=== PATIENT | female | born 1930 | race Caucasian/White ===

== ENCOUNTER 2017-08-27 12:17 | Inpatient (IN) | payer MEDICARE, BC ==
[2017-08-27] MEDS ORDERED: FUROSEMIDE 10 MG/ML 4 ML VIAL IV STA (12:53)
[2017-08-27] MEDS ORDERED: methylPREDNISolone SOD SUCCI 125 MG/2 ML VIAL IV STA (12:53)
[2017-08-27] MEDS ORDERED: IPRATROPIUM-ALBUTEROL 3 ML NEB INHALATION STA (12:53)
--- NOTE | 2017-08-27 13:00 | ED ---
SOB HPI - General Chief Complaint: Shortness of Breath Stated Complaint: Difficulty Breathing Time Seen by Provider: 08/27/17 12:40 Source: patient, family, RN notes reviewed Mode of arrival: ambulatory Limitations: no limitations - History of Present Illness Initial Comments: This is a 87-year-old female history of CHF in the past a leaky heart valve and COPD he is a former smoker many years ago was had shortness of breath is got progressively worse over the last week or so. She was seen in her doctor's office earlier this week and started on oxygen therapy she still persistently having shortness of breath and is getting worse. No fevers chills nausea vomiting no chest pain reported. Severe exertional dyspnea is noted. MD Complaint: shortness of breath - Related Data Home Medications Medication Instructions Recorded Confirmed Furosemide [Lasix] 40 mg PO DAILY 06/10/16 08/27/17 Metoprolol Succinate (ER) [Toprol 25 mg PO DAILY 06/10/16 08/27/17 Xl] Travoprost (Benzalkonium) 1 drop RIGHT EYE HS 06/10/16 08/27/17 [Travoprost 0.004% Eye Drop] Acetaminophen-Codeine 300-30mg 1 tab PO Q8H PRN 08/27/17 08/27/17 [Tylenol #3] Apixaban [Eliquis] 2.5 mg PO BID 08/27/17 08/27/17 Lansoprazole [Prevacid] 30 mg PO PC-SUPPER 08/27/17 08/27/17 Losartan Potassium [Losartan 50 mg PO DAILY 08/27/17 08/27/17 Potassium] Metolazone [Zaroxolyn] 5 mg PO MO 08/27/17 08/27/17 Allergies Allergy/AdvReac Type Severity Reaction Status Date / Time No Known Allergies Allergy Verified 08/27/17 13:21 Review of Systems ROS Statement: Those systems with pertinent positive or pertinent negative responses have been documented in the HPI. ROS Other: All systems not noted in ROS Statement are negative. Past Medical History Past Medical History: Coronary Artery Disease (CAD), Hyperlipidemia, Hypertension, Rheumatoid Arthritis (RA) Additional Past Medical History / Comment(s): Patient states she was on treatment for rheumatoid arthritis for 45 years and did not have any improvement. Currently not on any aggressive medications. History of Any Multi-Drug Resistant Organisms: None Reported Past Surgical History: Coronary Bypass/CABG, Joint Replacement Additional Past Surgical History / Comment(s): left knee, thyroid removed? per pt Past Anesthesia/Blood Transfusion Reactions: No Reported Reaction Past Psychological History: No Psychological Hx Reported Smoking Status: Former smoker Past Alcohol Use History: None Reported Past Drug Use History: None Reported - Past Family History Mother Family Medical History: Liver Disease Father Family Medical History: Cancer Additional Family Medical History / Comment(s): with lung CA General Exam - General Exam Comments Initial Comments: This is a well-developed well-nourished awake alert oriented 3 female Limitations: no limitations General appearance: alert, anxious Head exam: Present: atraumatic, normocephalic, normal inspection Eye exam: Present: normal appearance, PERRL, EOMI. Absent: scleral icterus, conjunctival injection, periorbital swelling ENT exam: Present: normal exam, mucous membranes moist Neck exam: Present: normal inspection. Absent: tenderness, meningismus, lymphadenopathy Respiratory exam: Present: rales, decreased breath sounds Cardiovascular Exam: Present: regular rate, normal rhythm, normal heart sounds. Absent: systolic murmur, diastolic murmur, rubs, gallop, clicks GI/Abdominal exam: Present: soft, normal bowel sounds. Absent: distended, tenderness, guarding, rebound, rigid Rectal exam: Present: deferred Extremities exam: Present: full ROM, normal capillary refill, other (Stasis dermatitis). Absent: tenderness, pedal edema, joint swelling, calf tenderness Back exam: Present: normal inspection Neurological exam: Present: alert, oriented X3, CN II-XII intact Psychiatric exam: Present: normal affect, normal mood Skin exam: Present: warm, dry, intact, normal color. Absent: rash Course Vital Signs 08/27/17 08/27/17 08/27/17 12:24 13:22 13:27 Temperature 98 F Pulse Rate 85 82 80 Respiratory 24 18 Rate Blood Pressure 145/59 164/67 O2 Sat by Pulse 90 L 97 Oximetry 08/27/17 14:43 Temperature Pulse Rate 74 Respiratory 16 Rate Blood Pressure 154/100 O2 Sat by Pulse 97 Oximetry - Reevaluation(s) Reevaluation #1: 08/27/17 13:05 EKG is compared with one dated 06/10/16 which does reveal similar morphology. Reevaluation #2: 08/27/17 15:08 Reevaluation patient is feeling slightly better. I did discuss the findings the patient and her family members. Medical Decision Making - Medical Decision Making I did discuss findings with patient family as well as Dr. Khan. Patient be admitted for evaluation treatment of congestive heart failure also she has evidence of a non-ST elevation myocardial infarction. She does states she's been having intermittent episodes of chest pain recently. She did not report this on my initial evaluation - Lab Data Result diagrams: 08/27/17 12:54 08/27/17 12:54 Lab Results 08/27/17 08/27/17 08/27/17 Range/Units 12:54 12:54 12:54 WBC 6.7 (3.8-10.6) k/uL RBC 3.99 (3.80-5.40) m/uL Hgb 13.0 (11.4-16.0) gm/dL Hct 40.1 (34.0-46.0) % MCV 100.4 H (80.0-100.0) fL MCH 32.7 (25.0-35.0) pg MCHC 32.6 (31.0-37.0) g/dL RDW 15.1 (11.5-15.5) % Plt Count 129 L (150-450) k/uL Neutrophils % 78 % Lymphocytes % 13 % Monocytes % 6 % Eosinophils % 1 % Basophils % 0 % Neutrophils # 5.2 (1.3-7.7) k/uL Lymphocytes # 0.9 L (1.0-4.8) k/uL Monocytes # 0.4 (0-1.0) k/uL Eosinophils # 0.1 (0-0.7) k/uL Basophils # 0.0 (0-0.2) k/uL Macrocytosis Slight PT (9.0-12.0) sec INR (<1.2) APTT (22.0-30.0) sec Sodium 139 (137-145) mmol/L Potassium 4.1 (3.5-5.1) mmol/L Chloride 102 (98-107) mmol/L Carbon Dioxide 24 (22-30) mmol/L Anion Gap 13 mmol/L BUN 43 H (7-17) mg/dL Creatinine 0.95 (0.52-1.04) mg/dL Est GFR (MDRD) Af Amer >60 (>60 ml/min/1.73 sqM) Est GFR (MDRD) Non-Af 56 (>60 ml/min/1.73 sqM) Glucose 167 H (74-99) mg/dL Calcium 9.6 (8.4-10.2) mg/dL Magnesium 1.9 (1.6-2.3) mg/dL Total Bilirubin 1.1 (0.2-1.3) mg/dL AST 41 H (14-36) U/L ALT 38 (9-52) U/L Alkaline Phosphatase 52 (38-126) U/L Total Creatine Kinase 52 (30-135) U/L CK-MB (CK-2) 2.2 (0.0-2.4) ng/mL CK-MB (CK-2) Rel Index 4.2 Troponin I 0.227 H* (0.000-0.034) ng/mL NT-Pro-B Natriuret Pep pg/mL Total Protein 6.8 (6.3-8.2) g/dL Albumin 4.1 (3.5-5.0) g/dL 08/27/17 08/27/17 Range/Units 12:54 12:54 WBC (3.8-10.6) k/uL RBC (3.80-5.40) m/uL Hgb (11.4-16.0) gm/dL Hct (34.0-46.0) % MCV (80.0-100.0) fL MCH (25.0-35.0) pg MCHC (31.0-37.0) g/dL RDW (11.5-15.5) % Plt Count (150-450) k/uL Neutrophils % % Lymphocytes % % Monocytes % % Eosinophils % % Basophils % % Neutrophils # (1.3-7.7) k/uL Lymphocytes # (1.0-4.8) k/uL Monocytes # (0-1.0) k/uL Eosinophils # (0-0.7) k/uL Basophils # (0-0.2) k/uL Macrocytosis PT 13.1 H (9.0-12.0) sec INR 1.3 H (<1.2) APTT 26.5 (22.0-30.0) sec Sodium (137-145) mmol/L Potassium (3.5-5.1) mmol/L Chloride (98-107) mmol/L Carbon Dioxide (22-30) mmol/L Anion Gap mmol/L BUN (7-17) mg/dL Creatinine (0.52-1.04) mg/dL Est GFR (MDRD) Af Amer (>60 ml/min/1.73 sqM) Est GFR (MDRD) Non-Af (>60 ml/min/1.73 sqM) Glucose (74-99) mg/dL Calcium (8.4-10.2) mg/dL Magnesium (1.6-2.3) mg/dL Total Bilirubin (0.2-1.3) mg/dL AST (14-36) U/L ALT (9-52) U/L Alkaline Phosphatase (38-126) U/L Total Creatine Kinase (30-135) U/L CK-MB (CK-2) (0.0-2.4) ng/mL CK-MB (CK-2) Rel Index Troponin I (0.000-0.034) ng/mL NT-Pro-B Natriuret Pep 47954 pg/mL Total Protein (6.3-8.2) g/dL Albumin (3.5-5.0) g/dL - EKG Data -: EKG Interpreted by [facility] EKG shows normal: sinus rhythm (EKG shows a atrial fibrillation rate of 72 QRS 104 QT since QTC of 400/[address] configuration) - Radiology Data Radiology results: report reviewed (I did review the imaging and reports are is evidence of congestive heart failure.), image reviewed Critical Care Time Critical Care Time: Yes Critical Care Time: 34 minutes of critical care time which includes initial presentation with history physical labs x-rays multiple re-evaluations the patient response to therapy. Discussion with the patient family and admitting physician. Admission orders and documentation of the above. Disposition Clinical Impression: Non-ST elevation myocardial infarction (NSTEMI), Congestive heart failure (CHF) Disposition: ADMITTED IP TO THIS [facility] Condition: Stable Referrals: Martin Carr MD [Primary Care Provider] - 1-2 days
[2017-08-27 13:06] LABS: Basophils % (A) 0 %; CHCM 32.1; Eosinophils # (A) 0.1 k/uL (0-0.7); Eosinophils % (A) 1 %; HCT 40.1 % (34.0-46.0); HDW 2.79; Luc # (Auto) 0.08; Luc % (Auto) 1; Lymphocytes # (A) 0.9 k/uL (1.0-4.8); Lymphocytes % (A) 13 %; MCH 32.7 pg (25.0-35.0); MCHC 32.6 g/dL (31.0-37.0); MCV 100.4 fL (80.0-100.0); Macrocytosis Slight; Mean Platelet Volume 8.5; Monocytes # (A) 0.4 k/uL (0-1.0); Monocytes % (A) 6 %; Neutrophils # (A) 5.2 k/uL (1.3-7.7); Neutrophils % (A) 78 %; RBC 3.99 m/uL (3.80-5.40); RDW 15.1 % (11.5-15.5); WBC 6.7 k/uL (3.8-10.6); WBC (Perox) 6.73
--- NOTE | 2017-08-27 13:21 | XR ---
EXAMINATION TYPE: XR chest 2V DATE OF EXAM: 08/27/2017 COMPARISON: 06/10/2016 HISTORY: Shortness of breath FINDINGS: Noted is pulmonary venous congestion with scattered infiltrates. There is also cardiomegaly and bilateral right greater than left effusions. IMPRESSION: Findings compatible with congestive failure. Infiltrates of other etiology are not excluded. Clinical correlation and progress studies are recommended.
[2017-08-27 13:22] LABS: INR 1.3 (<1.2); Partial Thromboplastin Time 26.5 sec (22.0-30.0); Prothrombin Time 13.1 sec (9.0-12.0)
[2017-08-27 13:23] LABS: ALT 38 U/L (9-52); AST 41 U/L (14-36); Alkaline Phosphatase 52 U/L (38-126); Anion Gap 13 mmol/L; Blood Urea Nitrogen 43 mg/dL (7-17); Calcium 9.6 mg/dL (8.4-10.2); Carbon Dioxide 24 mmol/L (22-30); Chloride 102 mmol/L (98-107); Glucose 167 mg/dL (74-99); Magnesium 1.9 mg/dL (1.6-2.3); Non-African American GFR(MDRD) 56 (>60 ml/min/1.73 sqM); Potassium 4.1 mmol/L (3.5-5.1); Sodium 139 mmol/L (137-145); Total Bilirubin 1.1 mg/dL (0.2-1.3); Total Protein 6.8 g/dL (6.3-8.2)
[2017-08-27 13:40] LABS: Creatine Kinase MB 2.2 ng/mL (0.0-2.4)
[2017-08-27 13:45] LABS: Troponin I 0.227 ng/mL (0.000-0.034)
[2017-08-27] MEDS ORDERED: NITROGLYCERIN SL TABS 0.4 MG TAB SUBLINGUAL PRN (15:12)
[2017-08-27] MEDS ORDERED: NITROGLYCERIN OINT 1 INCH/GM PACKET TOPICAL STA (15:19)
[2017-08-27] MEDS ORDERED: Acetaminophen-Codeine 300-30mg TAB PO PRN (15:20)
[2017-08-27] MEDS: IPRATROPIUM-ALBUTEROL 3 ML NEB INHALATION SCH ×2 (15:42→20:29)
[2017-08-27] MEDS: PANTOPRAZOLE 40 MG TABLET PO SCH (17:14)
[2017-08-27 19:34] LABS: Creatine Kinase MB 2.1 ng/mL (0.0-2.4)
[2017-08-27 19:44] LABS: Troponin I 0.228 ng/mL (0.000-0.034)
--- NOTE | 2017-08-27 19:45 | P.HPIM ---
History of Present Illness H&P Date: 08/27/17 Chief Complaint: Shortness of breath fatigue and chest pain Patient stated that she began getting extremely fatigued and short of breath and short of breath approximately 3 days ago, she has a known history of mitral valve disease all his aortic valve disease has a history of COPD and has been a smoker in the past for this patient was in the office and started on O2 is been persistently having shortness of breath and getting worse Review of Systems Constitutional: Reports as per HPI, Reports lethargy Cardiovascular: Reports chest pain, Reports decreased exercise tolerance, Reports dyspnea on exertion, Reports high blood pressure, Reports paroxysmal nocturnal dyspnea, Reports shortness of breath Respiratory: Reports home oxygen Gastrointestinal: Reports as per HPI Genitourinary: Reports as per HPI Menstruation: Reports as per HPI, Reports postmenopausal Musculoskeletal: Reports as per HPI Integumentary: Reports as per HPI Neurological: Reports as per HPI Past Medical History Past Medical History: Atrial Fibrillation, Coronary Artery Disease (CAD), Heart Failure, COPD, GERD/Reflux, Hyperlipidemia, Hypertension, Pneumonia, Rheumatoid Arthritis (RA) Additional Past Medical History / Comment(s): Patient states she was on treatment for rheumatoid arthritis for 45 years and did not have any improvement. Currently not on any aggressive medications. History of Any Multi-Drug Resistant Organisms: None Reported Past Surgical History: Coronary Bypass/CABG, Joint Replacement Additional Past Surgical History / Comment(s): left knee, thyroid removed YEARS AGO AGE 24 Past Anesthesia/Blood Transfusion Reactions: No Reported Reaction Smoking Status: Former smoker - Past Family History Mother Family Medical History: Liver Disease Father Family Medical History: Cancer Additional Family Medical History / Comment(s): with lung CA Medications and Allergies Home Medications Medication Instructions Recorded Confirmed Type Furosemide [Lasix] 40 mg PO DAILY 06/10/16 08/27/17 History Metoprolol Succinate (ER) [Toprol 25 mg PO DAILY 06/10/16 08/27/17 History Xl] Travoprost (Benzalkonium) 1 drop RIGHT EYE HS 06/10/16 08/27/17 History [Travoprost 0.004% Eye Drop] Acetaminophen-Codeine 300-30mg 1 tab PO Q8H PRN 08/27/17 08/27/17 History [Tylenol #3] Apixaban [Eliquis] 2.5 mg PO BID 08/27/17 08/27/17 History Lansoprazole [Prevacid] 30 mg PO PC-SUPPER 08/27/17 08/27/17 History Losartan Potassium [Losartan 50 mg PO DAILY 08/27/17 08/27/17 History Potassium] Metolazone [Zaroxolyn] 5 mg PO MO 08/27/17 08/27/17 History Allergies Allergy/AdvReac Type Severity Reaction Status Date / Time No Known Allergies Allergy Verified 08/27/17 13:21 Physical Exam Osteopathic Statement: *. No significant issues noted on an osteopathic structural exam other than those noted in the History and Physical/Consult. Vitals: Vital Signs Temp Pulse Pulse Resp BP BP Pulse Ox 08/27/17 16:00 97.9 F 8 L 20 153/52 96 08/27/17 15:38 97.6 F 88 18 169/75 98 08/27/17 15:00 77 20 154/60 96 08/27/17 14:43 74 16 154/100 97 08/27/17 13:27 80 18 164/67 97 08/27/17 13:22 82 08/27/17 12:24 98 F 85 24 145/59 90 L Intake and Output 08/27/17 08/27/17 08/27/17 06:59 14:59 22:59 Intake Total 240 Balance 240 Intake: Oral 240 Other: Voiding Method Toilet # Voids 1 Weight 75.296 kg Patient Weight 08/28/17 06:59 Weight 75.296 kg General: [Patient awake, alert and oriented times 3. Patient in no acute distress.] HEENT: [PERRL. EOMI. No pharyngeal erythema or exudate.] Neck: [No adenopathy.] Cardiac: [Heart regular in rate and rhythm. No S3. No S4. No clicks, rubs. Grade 3-4 holosystolic murmur.] Lungs: Diminished breath sounds bilaterally with bilateral rhonchi Abdomen: [No mass. No organomegaly. Bowel sounds presnt and normoactive in all 4 quadrants.] Extremes: [No edema no cyanosis no claudication normal pulses] : [] Musculoskeletal: [No joint erythema, edema or tenderness.] Skin: [No rash.] Neurologic: [No lateralizing deficits. CN II - XII grossly intact.] Lymphatic: [No adenopathy.] Results CBC & Chem 7: 08/27/17 12:54 08/27/17 12:54 Labs: Abnormal Lab Results - Last 24 Hours (Table) 08/27/17 08/27/17 08/27/17 Range/Units 12:54 12:54 12:54 MCV 100.4 H (80.0-100.0) fL Plt Count 129 L (150-450) k/uL Lymphocytes # 0.9 L (1.0-4.8) k/uL PT (9.0-12.0) sec INR (<1.2) BUN 43 H (7-17) mg/dL Glucose 167 H (74-99) mg/dL AST 41 H (14-36) U/L Troponin I 0.227 H* (0.000-0.034) ng/mL 08/27/17 Range/Units 12:54 MCV (80.0-100.0) fL Plt Count (150-450) k/uL Lymphocytes # (1.0-4.8) k/uL PT 13.1 H (9.0-12.0) sec INR 1.3 H (<1.2) BUN (7-17) mg/dL Glucose (74-99) mg/dL AST (14-36) U/L Troponin I (0.000-0.034) ng/mL Thrombosis Risk Factor Assmnt - Choose All That Apply Any of the Below Risk Factors Present?: Yes Each Factor Represents 1 point: Abnormal pulmonary function (COPD) Other Risk Factors: Yes Each Risk Factor Represents 3 Points: Age 75 years or older Other congenital or acquired thrombophilia - If yes, enter type in comment: No Thrombosis Risk Factor Assessment Total Risk Factor Score: 4 Thrombosis Risk Factor Assessment Level: Moderate Risk Assessment and Plan (1) Congestive heart failure (CHF) Narrative/Plan: Obtain cardiology consult, will also get echocardiogram Status: Acute (2) Non-ST elevation myocardial infarction (NSTEMI) Narrative/Plan: We'll resume all hypertension hypertensive meds patient was also started on Lasix We'll obtain echocardiogram Waiting on cardiology consult and continue diuretics at this time Status: Acute Time with Patient: Greater than 30
[2017-08-27] MEDS: FUROSEMIDE 10 MG/ML 4 ML VIAL IV SCH (22:01)
[2017-08-27] MEDS: APIXABAN 2.5 MG TABLET PO SCH (22:01)
[2017-08-27] MEDS: LATANOPROST 0.005% OPHTH DROPS 2.5 ML BTL RIGHT EYE SCH (22:06)
[2017-08-28 00:59] LABS: Cholesterol 130 mg/dL (<200); HDL Cholesterol 40 mg/dL (40-60)
[2017-08-28 01:25] LABS: Creatine Kinase MB 2.3 ng/mL (0.0-2.4)
[2017-08-28] MEDS: NITROGLYCERIN OINT 1 INCH/GM PACKET TOPICAL SCH ×3 (01:38→11:14)
[2017-08-28 01:39] LABS: Troponin I 0.181 ng/mL (0.000-0.034)
[2017-08-28] MEDS: IPRATROPIUM-ALBUTEROL 3 ML NEB INHALATION SCH ×4 (07:32→19:30)
[2017-08-28] MEDS: APIXABAN 2.5 MG TABLET PO SCH ×2 (08:42→19:43)
[2017-08-28] MEDS: LOSARTAN 50 MG TAB PO SCH (08:42)
[2017-08-28] MEDS: METOPROLOL SUCCINATE (ER) 25 MG TAB.ER.24H PO SCH (08:42)
[2017-08-28] MEDS: FUROSEMIDE 10 MG/ML 4 ML VIAL IV SCH ×2 (08:43→19:43)
[2017-08-28] MEDS ORDERED: ASPIRIN 325 MG TAB PO SCH (09:00)
[2017-08-28] MEDS ORDERED: FUROSEMIDE 20 MG TAB PO SCH (09:00)
--- NOTE | 2017-08-28 10:09 | P.CRDCN ---
History of Present Illness Consult date: 08/28/17 Requesting physician: Alejo Khan Jr Reason for Consult (text): Non-STEMI Chief complaint: shortness of breath, cough History of present illness: This is a pleasant 87-year-old female who follows with Dr. Trammell in the office. Has known history of hypertension, hyperlipidemia, atrial fibrillation , aortic valve replacement in 2011. Most recent available echo shows mild to moderate TR, mild MR and moderate prosthetic aortic regurg. She presented to the emergency department with complaint of progressively worsening shortness of breath and productive cough. She says she did have an episode of chest discomfort about a week ago while she was clipping her Lillies. Chest x-ray on admission showed pulmonary venous congestion with scattered infiltrates and bilateral right greater than left effusions, findings compatible with CHF however infiltrates of other etiology are not excluded. EKG showed atrial fibrillation with controlled ventricular response with ST-T wave abnormalities similar to previous. She is found to have elevation in troponins of 0.227, 0.228 and 0.181. Her BNP is elevated at 14,700. BUNs 43 creatinine 0.95. She is currently on Lasix 40 mg IV push every 12 hours. Upon examination, the patient continues to complain of significant shortness of breath. She appears short of breath with talking. She also complains of mild lower extremity edema. She denies weight gain. She has no dizziness, lightheadedness, syncope or further complaints of chest discomfort. Past Medical History Past Medical History: Atrial Fibrillation, Coronary Artery Disease (CAD), Heart Failure, COPD, GERD/Reflux, Hyperlipidemia, Hypertension, Pneumonia, Rheumatoid Arthritis (RA) Additional Past Medical History / Comment(s): Patient states she was on treatment for rheumatoid arthritis for 45 years and did not have any improvement. Currently not on any aggressive medications. History of Any Multi-Drug Resistant Organisms: None Reported Past Surgical History: Coronary Bypass/CABG, Joint Replacement Additional Past Surgical History / Comment(s): left knee, thyroid removed YEARS AGO AGE 24 Past Anesthesia/Blood Transfusion Reactions: No Reported Reaction Smoking Status: Former smoker - Past Family History Mother Family Medical History: Liver Disease Father Family Medical History: Cancer Additional Family Medical History / Comment(s): with lung CA Medications and Allergies Home Medications Medication Instructions Recorded Confirmed Type Furosemide [Lasix] 40 mg PO DAILY 06/10/16 08/27/17 History Metoprolol Succinate (ER) [Toprol 25 mg PO DAILY 06/10/16 08/27/17 History Xl] Travoprost (Benzalkonium) 1 drop RIGHT EYE HS 06/10/16 08/27/17 History [Travoprost 0.004% Eye Drop] Acetaminophen-Codeine 300-30mg 1 tab PO Q8H PRN 08/27/17 08/27/17 History [Tylenol #3] Apixaban [Eliquis] 2.5 mg PO BID 08/27/17 08/27/17 History Lansoprazole [Prevacid] 30 mg PO PC-SUPPER 08/27/17 08/27/17 History Losartan Potassium [Losartan 50 mg PO DAILY 08/27/17 08/27/17 History Potassium] Metolazone [Zaroxolyn] 5 mg PO MO 08/27/17 08/27/17 History Allergies Allergy/AdvReac Type Severity Reaction Status Date / Time No Known Allergies Allergy Verified 08/27/17 13:21 Physical Exam Vitals: Vital Signs Temp Pulse Pulse Pulse Resp BP BP 08/28/17 08:00 97.1 F L 53 L 16 08/28/17 07:46 82 08/28/17 07:34 80 08/28/17 04:00 97.1 F L 83 18 08/28/17 00:00 78 18 132/58 08/27/17 20:43 79 08/27/17 20:32 79 08/27/17 20:00 97 F L 80 18 08/27/17 16:00 97.9 F 8 L 20 153/52 08/27/17 15:38 97.6 F 88 18 169/75 08/27/17 15:00 77 20 154/60 08/27/17 14:43 74 16 154/100 08/27/17 13:27 80 18 164/67 08/27/17 13:22 82 08/27/17 12:24 98 F 85 24 145/59 BP Pulse Ox 08/28/17 08:00 146/60 98 08/28/17 07:46 08/28/17 07:34 95 08/28/17 04:00 138/77 95 08/28/17 00:00 96 08/27/17 20:43 08/27/17 20:32 08/27/17 20:00 131/56 96 08/27/17 16:00 96 08/27/17 15:38 98 08/27/17 15:00 96 08/27/17 14:43 97 08/27/17 13:27 97 08/27/17 13:22 08/27/17 12:24 90 L Intake and Output 08/27/17 08/28/17 08/28/17 22:59 06:59 14:59 Intake Total 240 240 Output Total 500 Balance 240 -500 240 Intake: Oral 240 240 Output: Urine 500 Other: Voiding Method Toilet Toilet # Voids 1 1 Weight 75.8 kg PHYSICAL EXAMINATION: HEENT: Head is atraumatic, normocephalic. Pupils equal, round. Neck is supple. There is no elevated jugular venous pressure. HEART EXAMINATION: Heart sounds irregularly irregular, S1 and S2 with a systolic and diastolic murmur at the base. CHEST EXAMINATION: Lungs reveal scattered wheezes with crackles to bilateral bases. No chest wall tenderness is noted on palpation or with deep breathing. ABDOMEN: Soft, nontender. Bowel sounds are heard. No organomegaly noted. EXTREMITIES: 1+ peripheral pulses with evidence of +1 right lower leg edema and no calf tenderness noted. NEUROLOGIC patient is awake, alert and oriented x3. . Results 08/27/17 12:54 08/27/17 12:54 Cardiac Enzymes 08/27/17 08/27/17 08/27/17 Range/Units 12:54 12:54 18:55 AST 41 H (14-36) U/L CK-MB (CK-2) 2.2 2.1 (0.0-2.4) ng/mL Troponin I 0.227 H* 0.228 H* (0.000-0.034) ng/mL 08/28/17 Range/Units 00:32 AST (14-36) U/L CK-MB (CK-2) 2.3 (0.0-2.4) ng/mL Troponin I 0.181 H* (0.000-0.034) ng/mL Coagulation 08/27/17 Range/Units 12:54 PT 13.1 H (9.0-12.0) sec APTT 26.5 (22.0-30.0) sec Lipids 08/28/17 Range/Units 00:32 Triglycerides 80 (<150) mg/dL Cholesterol 130 (<200) mg/dL HDL Cholesterol 40 (40-60) mg/dL CBC 08/27/17 Range/Units 12:54 WBC 6.7 (3.8-10.6) k/uL RBC 3.99 (3.80-5.40) m/uL Hgb 13.0 (11.4-16.0) gm/dL Hct 40.1 (34.0-46.0) % Plt Count 129 L (150-450) k/uL Comprehensive Metabolic Panel 08/27/17 Range/Units 12:54 Sodium 139 (137-145) mmol/L Potassium 4.1 (3.5-5.1) mmol/L Chloride 102 (98-107) mmol/L Carbon Dioxide 24 (22-30) mmol/L BUN 43 H (7-17) mg/dL Creatinine 0.95 (0.52-1.04) mg/dL Glucose 167 H (74-99) mg/dL Calcium 9.6 (8.4-10.2) mg/dL AST 41 H (14-36) U/L ALT 38 (9-52) U/L Alkaline Phosphatase 52 (38-126) U/L Total Protein 6.8 (6.3-8.2) g/dL Albumin 4.1 (3.5-5.0) g/dL Current Medications Generic Name Dose Route Start Last Admin Trade Name Freq PRN Reason Stop Dose Admin Acetaminophen/Codeine Phosphate 1 each 08/27/17 15:20 Tylenol #3 PO Q8H PRN Pain Albuterol/Ipratropium 3 ml 08/28/17 08:00 08/28/17 07:32 Duoneb 0.5 Mg-3 Mg/3 Ml Soln INHALATION 3 ml RT-QID KATHERINE Administration Apixaban 2.5 mg 08/27/17 21:00 08/28/17 08:42 Eliquis PO 2.5 mg BID KATHERINE Administration Aspirin 325 mg 08/28/17 09:00 08/28/17 08:42 Aspirin PO 325 mg DAILY KATHERINE Administration Furosemide 40 mg 08/27/17 21:00 08/28/17 08:43 Lasix IV 40 mg Q12HR KATHERINE Administration Latanoprost 1 drops 08/27/17 21:00 08/27/17 22:06 Xalatan 0.005% RIGHT EYE 1 drops HS KATHERINE Administration Losartan Potassium 50 mg 08/28/17 09:00 08/28/17 08:42 Cozaar PO 50 mg DAILY KATHERINE Administration Metolazone 5 mg 08/30/17 09:00 Zaroxolyn PO MO KATHERINE Metoprolol Succinate 25 mg 08/28/17 09:00 08/28/17 08:42 Toprol Xl PO 25 mg DAILY KATHERINE Administration Nitroglycerin 0.5 inch 08/28/17 00:00 08/28/17 05:09 Nitro-Bid Oint TOPICAL 0.5 inch Q6HR KATHERINE Administration Nitroglycerin 0.4 mg 08/27/17 15:12 Nitrostat SUBLINGUAL Q5M PRN Chest Pain Pantoprazole Sodium 40 mg 08/27/17 18:30 08/27/17 17:14 Protonix PO 40 mg PC-SUPPER KATHERINE Administration Intake and Output 08/27/17 08/28/17 08/28/17 22:59 06:59 14:59 Intake Total 240 240 Output Total 500 Balance 240 -500 240 Intake: Oral 240 240 Output: Urine 500 Other: Voiding Method Toilet Toilet # Voids 1 1 Weight 75.8 kg 08/27/17 12:54 08/27/17 12:54 Assessment and Plan Plan: Assessment and plan #1 acute congestive heart failure, likely diastolic with last echo shows a normal EF, awaiting echo results from today. #2 hypertension #3 history of aortic valve replacement with moderate regurgitation of the repaired valve #4 hyperlipidemia From cardiology's perspective, we will stop nitropaste, start oral nitrate. Continue IV lasix. Continue to monitor renal function. Review 2-D echo with doppler. May consider adding aldactone tomorrow depending on clinical status and renal function. Further recommendations to follow. [employer] note has been reviewed, I agree with a documented findings and plan of care. Patient was seen and examined.
[2017-08-28 10:50] VITALS: BMI 28.6
--- NOTE | 2017-08-28 11:37 | P.PN ---
Subjective Progress Note Date: 08/28/17 Principal diagnosis: Congestive heart failure, diastolic in nature, hypertension, A. fib by history and valvular repair by history Pleasant 87-year-old female well-known to our practice who has a known history of hypertension hyperlipidemia A. fib aortic valve replacement 2011. Most recent echo demonstrates tricuspid regurg and mitral regurg moderate prosthetic aortic regurg. Patient again progressed presented to the emergency room with progressive worsening of shortness of breath over the last 3 days. She did have an episode of chest discomfort as well. X-ray on admission shows pulmonary venous congestion with scattered infiltrates right greater than left effusions findings compatible with congestive heart failure. And BNP of 14, 700. Today patient seems a bleeding seems improved and patient is excellent spirits and states she feels much better. Objective - Vital Signs Vital signs: Vital Signs Temp 97.1 F L 08/28/17 08:00 Pulse 78 08/28/17 11:22 Resp 16 08/28/17 08:00 BP 146/60 08/28/17 08:00 Pulse Ox 98 08/28/17 08:00 Intake & Output 08/27/17 08/28/17 08/28/17 18:59 06:59 18:59 Intake Total 240 Output Total 500 Balance 240 -500 Weight 75.296 kg 75.8 kg 75.8 kg Intake: Oral 240 Output: Urine 500 Other: Voiding Method Toilet Toilet # Voids 1 1 0 - Exam General: [Patient awake, alert and oriented times 3. Patient in no acute distress.] HEENT: [PERRL. EOMI. No pharyngeal erythema or exudate.] Neck: [No adenopathy.] Cardiac: [Heart regular in rate and rhythm. No S3. No S4. No clicks, rubs. Grade 3 holosystolic murmur Lungs: Breath sounds have improved patient has mild to moderate coarse rhonchi on auscultation Abdomen: [No mass. No organomegaly. Bowel sounds presnt and normoactive in all 4 quadrants.] Extremes: [No edema no cyanosis no claudication normal pulses] : [] Musculoskeletal: [No joint erythema, edema or tenderness.] Skin: [No rash.] Neurologic: [No lateralizing deficits. CN II - XII grossly intact.] Lymphatic: [No adenopathy.] - Labs CBC & Chem 7: 08/27/17 12:54 08/27/17 12:54 Labs: Abnormal Lab Results - Last 24 Hours (Table) 08/27/17 08/27/17 08/27/17 Range/Units 12:54 12:54 12:54 MCV 100.4 H (80.0-100.0) fL Plt Count 129 L (150-450) k/uL Lymphocytes # 0.9 L (1.0-4.8) k/uL PT (9.0-12.0) sec INR (<1.2) BUN 43 H (7-17) mg/dL Glucose 167 H (74-99) mg/dL AST 41 H (14-36) U/L Troponin I 0.227 H* (0.000-0.034) ng/mL 08/27/17 08/27/17 08/28/17 Range/Units 12:54 18:55 00:32 MCV (80.0-100.0) fL Plt Count (150-450) k/uL Lymphocytes # (1.0-4.8) k/uL PT 13.1 H (9.0-12.0) sec INR 1.3 H (<1.2) BUN (7-17) mg/dL Glucose (74-99) mg/dL AST (14-36) U/L Troponin I 0.228 H* 0.181 H* (0.000-0.034) ng/mL Assessment and Plan (1) Congestive heart failure (CHF) Status: Acute (2) Non-ST elevation myocardial infarction (NSTEMI) Status: Acute Plan: Echocardiogram results pending Dr. Trammell was in with patient as I left the room patient otherwise improved at this time Time with Patient: Less than 30
--- NOTE | 2017-08-28 11:38 | P.PN ---
Progress Note - Text This is an addendum to the dictated cardiology consultation. The patient has a known history of aortic valve replacement in 2012, mild coronary artery disease , mild prosthetic aortic regurgitation who presents with symptoms of progressive dyspnea on exertion, cough and peripheral edema. She had a brief episode of chest discomfort but has resolved since. She denies any dizziness or palpitations. She has symptoms of PND. She has a history of chronic atrial fibrillation and has been anticoagulated. She's feeling better today after receiving intravenous diuretics. Unlike examination she has few crackles at the bases and she has a diastolic aortic murmur and a systolic murmur. Mild edema is noted on the right side. Her lab data are consistent with CHF, the mild troponin elevation most likely represent a type II event consistent with her CHF. In the past her systolic function was normal. I will continue with intravenous diuretics for another 24-48 hours, I will review the results for echocardiogram. If she has significant severe aortic regurgitation than one of the option is to consider TAVR if she is in agreement. Depending on her renal function spironolactone can be added to her regimen. Thank you for this consult we will follow with you.
[2017-08-28] MEDS: ISOSORBIDE MONONITRATE ER 30 MG TAB.ER.24H PO SCH (12:27)
--- NOTE | 2017-08-28 14:42 | ECHOF ---
Referral Reason:Non-STEMI NM valvular disease MEASUREMENTS -------- HEIGHT: 162.6 cm WEIGHT: 75.8 kg BP: 138/77 RVIDd: 2.2 cm (< 3.3) IVSd: 1.2 cm (0.6 - 1.1) LVIDd: 5.3 cm (3.9 - 5.3) LVPWd: 0.9 cm (0.6 - 1.1) IVSs: 1.4 cm LVIDs: 3.3 cm LVPWs: 1.4 cm LA Diam: 4.9 cm (2.7 - 3.8) LAESV Index (A-L): 72.07 ml/m Ao Diam: 2.8 cm (2.0 - 3.7) AV Cusp: 1.2 cm (1.5 - 2.6) LA Diam: 4.6 cm (2.7 - 3.8) MV E Michael: 1.66 m/s MV DecT: 214 ms MV A Michael: 0.87 m/s MV E/A Ratio: 1.91 AV maxP.98 mmHg AV meanP.75 mmHg AR PHT: 143 ms RAP: 5.00 mmHg RVSP: 64.89 mmHg FINDINGS -------- Atrial fibrillation. This was a technically adequate study. The left ventricular size is normal. Left ventricular wall thickness is normal. Overall left ventricular systolic function is low-normal with, an EF between 50 - 55 %. The right ventricle is normal in size. LA is severely dilated >40 ml/m2 The right atrial size is normal. Peak/mean gradient across the Aortic Valve is 45.98mmHg / 19.75mmHg. Abnormally functioning porcine bioprosthetic aortic valve. There is severe regurgitation of the bioprosthetic aortic valve. Calcfied with possible leaflet prolapse. Moderate mitral annular calcification present. Moderate mitral regurgitation is present. The peak and mean MV gradients are 16.71mmHg 4.67mmHg as measured by doppler. MV is Stenotic with decrease opening Moderate tricuspid regurgitation present. There is moderate pulmonary hypertension. The right ventricular systolic pressure, as measured by Doppler, is 64.89mmHg. Trace/mild (physiologic) pulmonic regurgitation. The aortic root size is normal. There is no pericardial effusion. CONCLUSIONS -------- 1. Atrial fibrillation. 2. Moderate mitral regurgitation is present. 3. The peak and mean MV gradients are 16.71mmHg 4.67mmHg as measured by doppler. 4. MV is Stenotic with decrease opening 5. Moderate tricuspid regurgitation present. 6. There is moderate pulmonary hypertension. 7. The right ventricular systolic pressure, as measured by Doppler, is 64.89mmHg. 8. Trace/mild (physiologic) pulmonic regurgitation. 9. The aortic root size is normal. 10. There is no pericardial effusion. 11. Left ventricular wall thickness is normal. 12. Overall left ventricular systolic function is low-normal with, an EF between 50 - 55 %. 13. LA is severely dilated >40 ml/m2 14. Peak/mean gradient across the Aortic Valve is 45.98mmHg / 19.75mmHg. 15. Abnormally functioning porcine bioprosthetic aortic valve. 16. There is severe regurgitation of the bioprosthetic aortic valve. 17. Calcfied with possible leaflet prolapse. 18. Moderate mitral annular calcification present. SHOE RECONDITIONER: Liat Ying RDCS
[2017-08-28] MEDS: PANTOPRAZOLE 40 MG TABLET PO SCH (17:00)
[2017-08-28] MEDS: LATANOPROST 0.005% OPHTH DROPS 2.5 ML BTL RIGHT EYE SCH (19:43)
[2017-08-29 06:38] LABS: Calcium 9.5 mg/dL (8.4-10.2); Potassium 3.4 mmol/L (3.5-5.1)
[2017-08-29] MEDS: APIXABAN 2.5 MG TABLET PO SCH ×2 (07:43→21:39)
[2017-08-29] MEDS: METOPROLOL SUCCINATE (ER) 25 MG TAB.ER.24H PO SCH (07:43)
[2017-08-29] MEDS: ISOSORBIDE MONONITRATE ER 30 MG TAB.ER.24H PO SCH (07:43)
[2017-08-29] MEDS: LOSARTAN 50 MG TAB PO SCH (07:43)
[2017-08-29] MEDS: FUROSEMIDE 10 MG/ML 4 ML VIAL IV SCH (07:44)
[2017-08-29] MEDS: IPRATROPIUM-ALBUTEROL 3 ML NEB INHALATION SCH ×5 (08:44→19:10)
--- NOTE | 2017-08-29 11:25 | P.PN ---
Subjective Progress Note Date: 08/29/17 Principal diagnosis: Congestive heart failure, diastolic in nature, hypertension, A. fib by history and valvular repair by history Pleasant 87-year-old female well-known to our practice who has a known history of hypertension hyperlipidemia A. fib aortic valve replacement 2011. Most recent echo demonstrates tricuspid regurg and mitral regurg moderate prosthetic aortic regurg. Patient again progressed presented to the emergency room with progressive worsening of shortness of breath over the last 3 days. She did have an episode of chest discomfort as well. X-ray on admission shows pulmonary venous congestion with scattered infiltrates right greater than left effusions findings compatible with congestive heart failure. And BNP of 14, 700. Today patient seems improved and patient is excellent spirits and states she feels much better. Ejection fraction of 50-55% on echo however the aortic valve shows moderate to severe regurgitation Objective - Vital Signs Vital signs: Vital Signs Temp 97 F L 08/29/17 11:19 Pulse 80 08/29/17 11:19 Resp 18 08/29/17 11:19 BP 122/43 08/29/17 11:19 Pulse Ox 98 08/29/17 11:19 Intake & Output 08/28/17 08/29/17 08/29/17 18:59 06:59 18:59 Intake Total 480 236 Output Total 300 275 Balance 180 -275 236 Weight 75.8 kg 73.5 kg Intake: Oral 480 236 Output: Urine 300 275 Other: Voiding Method Toilet # Voids 0 1 # Bowel Movements 0 - Exam General: [Patient awake, alert and oriented times 3. Patient in no acute distress.] HEENT: [PERRL. EOMI. No pharyngeal erythema or exudate.] Neck: [No adenopathy.] Cardiac: [Heart regular in rate and rhythm. No S3. No S4. No clicks, rubs. Grade 3 holosystolic murmur Lungs: Breath sounds have improved patient has mild to moderate coarse rhonchi on auscultation Abdomen: [No mass. No organomegaly. Bowel sounds presnt and normoactive in all 4 quadrants.] Extremes: [No edema no cyanosis no claudication normal pulses] : [] Musculoskeletal: [No joint erythema, edema or tenderness.] Skin: [No rash.] Neurologic: [No lateralizing deficits. CN II - XII grossly intact.] Lymphatic: [No adenopathy.] - Labs CBC & Chem 7: 08/27/17 12:54 08/29/17 06:03 Labs: Abnormal Lab Results - Last 24 Hours (Table) 08/29/17 Range/Units 06:03 Potassium 3.4 L (3.5-5.1) mmol/L BUN 59 H (7-17) mg/dL Creatinine 1.20 H (0.52-1.04) mg/dL Glucose 122 H (74-99) mg/dL Microbiology - Last 24 Hours (Table) 08/27/17 12:54 Blood Culture - Preliminary Blood No Growth after 24 hours Assessment and Plan (1) Congestive heart failure (CHF) Status: Acute (2) Non-ST elevation myocardial infarction (NSTEMI) Status: Acute Plan: Echocardiogram results . EF of 50-55%, moderate to severe aortic valve regurg Continue diuresis Dr. Trammell was in with patient as I left the room patient otherwise improved at this time
--- NOTE | 2017-08-29 12:38 | P.PN ---
Subjective Progress Note Date: 08/29/17 The patient has a history of aortic valve replacement who presents with symptoms progressive dyspnea, cough productive of yellowish sputum. She continues to have the cough needs to be dyspneic although slightly better. She has no peripheral edema, no dizziness or syncope. She has no evidence of tachycardia or bradycardia. She had an echocardiogram done yesterday that showed an ejection fraction of 50-55% with severe bioprosthetic aortic regurgitation and moderate mitral regurgitation with moderate pulmonary hypertension. Objective - Vital Signs Vital signs: Vital Signs Temp 97 F L 08/29/17 11:19 Pulse 80 08/29/17 11:19 Resp 18 08/29/17 11:19 BP 122/43 08/29/17 11:19 Pulse Ox 98 08/29/17 11:19 Intake & Output 08/28/17 08/29/17 08/29/17 18:59 06:59 18:59 Intake Total 480 236 Output Total 300 275 Balance 180 -275 236 Weight 75.8 kg 73.5 kg Intake: Oral 480 236 Output: Urine 300 275 Other: Voiding Method Toilet # Voids 0 1 # Bowel Movements 0 - Exam Head: Normocephalic. Eyes: Sclerae nonicteric . Neck: Good carotid upstroke, no bruit, . Lungs: Few crackles at the bases. Heart: Irregular rate and rhythm, S1-S2, no S3, systolic ejection murmur and a diastolic murmur at the base. Abdomen: Soft nontender, positive bowel sounds no organomegaly. Extremities: No edema, intact distal pulses. - Labs CBC & Chem 7: 08/27/17 12:54 08/29/17 06:03 Labs: Abnormal Lab Results - Last 24 Hours (Table) 08/29/17 Range/Units 06:03 Potassium 3.4 L (3.5-5.1) mmol/L BUN 59 H (7-17) mg/dL Creatinine 1.20 H (0.52-1.04) mg/dL Glucose 122 H (74-99) mg/dL Microbiology - Last 24 Hours (Table) 08/27/17 12:54 Blood Culture - Preliminary Blood No Growth after 24 hours Assessment and Plan Plan: Impression: 1 progressive dyspnea with evidence of CHF related to her aortic regurgitation and possible bronchitis. 2. Persistent chronic atrial fibrillation 3. Status post aortic valve replacement. 4. Worsening renal functions. Plan: I will switch her to oral diuretics, continue the rest of his medical regimen. I had a long discussion with her and her family regarding the options of continuing medical treatment, the guarded prognosis versus considering valve in valve percutaneous replacement. The patient at this time is not very interested in any intervention. We will follow her renal function and depending on her progress further recommendations.
[2017-08-29] MEDS: FUROSEMIDE 40 MG TAB PO SCH (15:48)
[2017-08-29] MEDS: PANTOPRAZOLE 40 MG TABLET PO SCH (17:28)
[2017-08-29 20:34] LABS: Calcium 9.4 mg/dL (8.4-10.2)
[2017-08-29 20:35] LABS: Magnesium 1.9 mg/dL (1.6-2.3); Potassium 3.7 mmol/L (3.5-5.1)
[2017-08-29] MEDS: LATANOPROST 0.005% OPHTH DROPS 2.5 ML BTL RIGHT EYE SCH (21:39)
[2017-08-30] MEDS ORDERED: MELATONIN 3 MG TABLET PO STA (01:32)
[2017-08-30 06:47] LABS: Anion Gap 9 mmol/L; Blood Urea Nitrogen 46 mg/dL (7-17); Calcium 9.3 mg/dL (8.4-10.2); Carbon Dioxide 31 mmol/L (22-30); Chloride 102 mmol/L (98-107); Glucose 136 mg/dL (74-99); Non-African American GFR(MDRD) 54 (>60 ml/min/1.73 sqM); Potassium 3.3 mmol/L (3.5-5.1); Sodium 142 mmol/L (137-145)
[2017-08-30] MEDS: METOPROLOL SUCCINATE (ER) 25 MG TAB.ER.24H PO SCH (07:42)
[2017-08-30] MEDS: APIXABAN 2.5 MG TABLET PO SCH ×2 (07:42→21:09)
[2017-08-30] MEDS: FUROSEMIDE 40 MG TAB PO SCH ×2 (07:42→18:03)
[2017-08-30] MEDS: LOSARTAN 50 MG TAB PO SCH (07:43)
[2017-08-30] MEDS: ISOSORBIDE MONONITRATE ER 30 MG TAB.ER.24H PO SCH (07:43)
[2017-08-30] MEDS: IPRATROPIUM-ALBUTEROL 3 ML NEB INHALATION SCH ×4 (07:44→19:56)
[2017-08-30] MEDS ORDERED: METOLAZONE 5 MG TAB PO SCH (09:00)
--- NOTE | 2017-08-30 10:35 | CDI ---
In responding to this query, please exercise your independent professional judgment. The [facility] Coding Staff and Clinical Documentation Specialists appreciate your assistance in clarifying documentation, maintaining compliance with coding guidelines, accurately documenting patients condition and capturing severity of illness. The fact that a question is asked does not imply that any particular answer is desired or expected. Communication forms are a method of clarifying documentation and are not made part of the Legal Health Record. Thank you in advance for your clarification. Last Revision, September 2015 Sarah Rubio [address] [place] [id number] Documentation Clarification Form Date: 08/30/2017 10:14:00 AM From: Esthela Babcock CCS, CCDS Admit Date: 08/27/2017 3:12:00 PM Patient Name: Leslye Parra Visit Number: [id number] Discharge Date: Dr. Alejo Khan: Conflicting documentation has been found in the medical record. *Per the History & Physical and attending documentation, the patient is diagnosed with a NSTEMI, presented with elevated troponins, diagnosed with acute diastolic CHF. *Per the Cardiology consult & progress notes, the patient's elevated troponins are likely d/t CHF, likely diastolic & represent a type II event. History/Risk Factors: Chronic, Persistent Atrial Fibrillation, Hypertensive Heart Disease, Pulmonary Hypertension, previous CABG & AVR. Former smoker. Clinical Indicators: Troponins: 0.227, 0.228, 0.181 ECHO: EF 50-55% systolic function low normal, Mod mitral & tricuspid regurgitation. Treatment: IV Lasix, INH, IV Solumedrol, Nitro sl & nitropaste, O2. In your opinion what is the most clinically appropriate diagnosis for this patient? Type I MD: due to a primary coronary event, such as plaque rupture or dissection. Type II MD: Due to a supply & demand mismatch such as coronary spasm, coronary embolism, arrhythmia, anemia or hypotension. Other type of MD, please explain Other explanation of clinical findings Unable to determine (no explanation for clinical findings) Please document in your progress notes and discharge summary in order to capture severity of illness and risk of mortality. Include clinical findings that support your diagnosis. FYI: Press F11 to launch patient chart. RENZO
[2017-08-30] MEDS ORDERED: Potassium Replacement Protocol 1 EACH MISC MISCELLANE PRN (11:27)
--- NOTE | 2017-08-30 11:51 | P.PN ---
Subjective Progress Note Date: 08/30/17 87-year-old female who presented to the emergency room on 08/27/2017 with a chief complaint of shortness of breath. In the emergency room her troponins were found to be elevated and her BNP was 14,700. The patient has a history of an aortic valve replacement. She is a former smoker, has a history of COPD, and was recently started on home oxygen. A chest x-ray was completed in the emergency room which showed pulmonary venous congestion, scattered infiltrates, and bilateral right greater than left pleural effusions. An echocardiogram was completed which shows an ejection fraction of 50-55%. It also shows moderate to severe aortic valve regurgitation, moderate mitral valve regurgitation, and moderate pulmonary hypertension. The patient was admitted to the hospital under the care of Dr. Khan and consultations were placed to cardiology. 08/30/2017 Patient was seen and examined at the bedside this morning. She states she is feeling well. She denies any chest pain or pressure. She states her breathing has improved. She remains on 2 L nasal cannula with oxygen saturations greater than 92%. She is afebrile. She is tolerating a diet without nausea or vomiting. She was switched from IV Lasix to oral: 40mg PO BID and Zaroxolyn 5mg on Mondays. Objective - Vital Signs Vital signs: Vital Signs Temp 97.6 F 08/30/17 07:46 Pulse 84 08/30/17 11:16 Resp 18 08/30/17 08:00 BP 159/55 08/30/17 07:46 Pulse Ox 97 08/30/17 07:46 Intake & Output 08/29/17 08/30/17 08/30/17 18:59 06:59 18:59 Intake Total 436 Output Total 500 Balance 436 -500 Weight 76.5 kg Intake: Oral 436 Output: Urine 500 Other: Voiding Method Toilet # Voids 2 1 - Exam GENERAL: Alert and oriented. Appears in no acute distress. Pleasant. RESPIRATORY: Lungs clear bilaterally, diminished at the bases. No use of accessory muscles. Patient maintaining oxygen saturation greater than 92% on 2 L nasal cannula. CARDIOVASCULAR: Irregular, S1 and S2 noted. Systolic and diastolic murmur noted. No JVD noted. EXTREMITIES: no lower extremity edema. Palpable pedal pulses +2. ABDOMEN: No distention noted. Abdomen soft and round. Normal active bowel sounds auscultated 4 quadrants. No pain or tenderness noted upon palpation. - Labs CBC & Chem 7: 08/27/17 12:54 08/30/17 06:03 Labs: Abnormal Lab Results - Last 24 Hours (Table) 08/29/17 08/30/17 Range/Units 19:39 06:03 Potassium 3.3 L (3.5-5.1) mmol/L Carbon Dioxide 31 H (22-30) mmol/L BUN 53 H 46 H (7-17) mg/dL Creatinine 1.10 H (0.52-1.04) mg/dL Glucose 148 H 136 H (74-99) mg/dL Microbiology - Last 24 Hours (Table) 08/27/17 12:54 Blood Culture - Preliminary Blood No Growth after 48 hours Assessment and Plan Plan: ASSESSMENT: -Acute exacerbation of diastolic congestive heart failure, recent echo shows EF of 50-55% -Elevated troponins, present on admission, secondary to congestive heart failure and represent a type II SC -Dyspnea, present on admission, secondary to congestive heart failure exacerbation, improving -Chronic, persistent atrial fibrillation on long-term anticoagulation with Eliquis -History of aortic valve replacement with moderate to severe regurgitation of the repaired valve -COPD, no evidence of acute exacerbation -Essential hypertension -History of rheumatoid arthritis, patient currently not on any treatment as patient states she was not seeing any improvement -Hypokalemia, secondary to diuretics PLAN: -Cardiology on consult. Appreciate recommendations and input -Continue diuretics -Per cardiology report, the patient is not interested in pursuing intervention for her aortic valve regurgitation -Replace potassium per protocol -Monitor labs -GI prophylaxis: Protonix 40 mg PO daily -DVT prophylaxis: Eliquis -Monitor vital signs and address as appropriate The above impression and plan of care have been discussed and directed by signing physician. Freda Julien, nurse practitioner, acting as scribe for signing physician.
[2017-08-30] MEDS: POTASSIUM CHLORIDE ER 20 MEQ TAB.ER PO SCH (11:58)
--- NOTE | 2017-08-30 12:36 | PN ---
PROGRESS NOTE Mrs. Parra is an 87-year-old female status post aortic valve replacement with aortic valve regurgitation, history of hypertension and atrial fibrillation who presented with symptoms of progressive dyspnea. She is feeling better today. She continues to cough. She has dark sputum. She has no chest pain. No palpitation. No nausea. Her breathing overall feels better. She continues to be on furosemide 40 mg twice a day, Eliquis 2 .5 mg twice a day, isosorbide mononitrate 30 mg daily, losartan 50 mg daily, metolazone 5 mg once a week, metoprolol succinate 25 mg daily, and potassium supplement. PHYSICAL EXAMINATION: Blood pressure running in the 140s with the heart rate in the 70s. LUNGS: No wheezes. HEART: Irregular, irregular. S1, S2. No S3 with a systolic murmur heard at the base and a diastolic murmur. No rub. ABDOMEN: Soft, nontender. EXTREMITIES: No edema. LAB DATA: Lab data revealed BUN and creatinine 46 and 0.97. Potassium 3.3. Cholesterol 130, LDL of 74. IMPRESSION: 1. Status post aortic valve replacement with aortic regurgitation, severe. 2. Symptoms of bronchitis. 3. Congestive heart failure related to her aortic regurgitation. 4. Atrial fibrillation. RECOMMENDATION: From the cardiac standpoint, we will continue current therapy. Follow her renal function. If she remains stable, I would expect that she should be able to be discharged home in the next 24 to 48 hours and then re-evaluated as an outpatient regarding her aortic valve regurgitation and if she is in favor of proceeding with any further intervention. Those findings were discussed with her and her family. MMODL / IJN: [id number] /
[2017-08-30] MEDS: PANTOPRAZOLE 40 MG TABLET PO SCH (18:03)
[2017-08-30] MEDS: LATANOPROST 0.005% OPHTH DROPS 2.5 ML BTL RIGHT EYE SCH (21:09)
[2017-08-31 07:12] LABS: Anion Gap 8 mmol/L; Blood Urea Nitrogen 40 mg/dL (7-17); Calcium 9.6 mg/dL (8.4-10.2); Carbon Dioxide 34 mmol/L (22-30); Chloride 98 mmol/L (98-107); Glucose 127 mg/dL (74-99); Non-African American GFR(MDRD) 59 (>60 ml/min/1.73 sqM); Potassium 3.7 mmol/L (3.5-5.1); Sodium 140 mmol/L (137-145)
[2017-08-31 08:02] VITALS: BP 142/53; RESP 18; TEMP 97.3
[2017-08-31] MEDS: APIXABAN 2.5 MG TABLET PO SCH (08:13)
[2017-08-31] MEDS: ISOSORBIDE MONONITRATE ER 30 MG TAB.ER.24H PO SCH (08:13)
[2017-08-31] MEDS: METOPROLOL SUCCINATE (ER) 25 MG TAB.ER.24H PO SCH (08:14)
[2017-08-31] MEDS: LOSARTAN 50 MG TAB PO SCH (08:14)
[2017-08-31] MEDS: FUROSEMIDE 40 MG TAB PO SCH (08:14)
[2017-08-31] MEDS: IPRATROPIUM-ALBUTEROL 3 ML NEB INHALATION SCH ×3 (08:23→15:53)
--- NOTE | 2017-08-31 11:03 | P.DS ---
Providers Date of admission: 08/27/17 15:12 Expected date of discharge: 08/31/17 Attending physician: Alejo Khan Consults: 08/27/17 15:12 Consult Physician Urgent Consulting Provider: Kenny Trammell Consult Reason/Comments: Non-ST elevation myocardial infarction Do you want consulting provider notified?: Already Contacted Primary care physician: [facility] Hospital Course: 87-year-old female who presented to the emergency room on 08/27/2017 with a chief complaint of shortness of breath. In the emergency room her troponins were found to be elevated and her BNP was 14,700. The patient has a history of an aortic valve replacement. She is a former smoker, has a history of COPD, and was recently started on home oxygen. A chest x-ray was completed in the emergency room which showed pulmonary venous congestion, scattered infiltrates, and bilateral right greater than left pleural effusions. An echocardiogram was completed which shows an ejection fraction of 50-55%. It also shows moderate to severe aortic valve regurgitation, moderate mitral valve regurgitation, and moderate pulmonary hypertension. The patient was admitted to the hospital under the care of Dr. Khan and consultations were placed to cardiology. The patient was diuresed with IV Lasix and has been switched from IV Lasix to oral and is tolerating well. The patient's potassium was low secondary to IV Lasix. It was supplemented and this morning and is normal at 3.7. She was started on Imdur 30 mg daily per cardiology and is tolerating well. Cardiology spoke in depth with the patient regarding possible interventions for her severe aortic valve regurgitation. At this time patient does not want to proceed with any intervention. The patient is to follow up outpatient with cardiology on an outpatient basis to be reevaluated for possible intervention. Patient was seen and examined at the bedside this morning. She states she is feeling well. She denies any chest pain or pressure. She states her breathing has improved. She remains on 2 L nasal cannula with oxygen saturations greater than 92%, which patient states she uses at home. She is afebrile. She is tolerating a diet without nausea or vomiting. DISCHARGE DIAGNOSIS: -Acute exacerbation of diastolic congestive heart failure, recent echo shows EF of 50-55% -Elevated troponins, present on admission, secondary to congestive heart failure and represent a type II MO -Dyspnea, present on admission, secondary to congestive heart failure exacerbation, improving -Chronic, persistent atrial fibrillation on long-term anticoagulation with Eliquis -History of aortic valve replacement with moderate to severe regurgitation of the repaired valve -COPD, no evidence of acute exacerbation -Essential hypertension -History of rheumatoid arthritis, patient currently not on any treatment as patient states she was not seeing any improvement -Hypokalemia, secondary to diuretics, resolved The above impression and plan of care have been discussed and directed by signing physician. Freda Julien, nurse practitioner, acting as scribe for signing physician. Plan - Discharge Summary New Discharge Prescriptions: New Isosorbide Mononitrate ER [Imdur] 30 mg PO DAILY #30 tab Continue Metoprolol Succinate (ER) [Toprol XL] 25 mg PO DAILY Furosemide [Lasix] 40 mg PO DAILY Travoprost (Benzalkonium) [Travoprost 0.004% Eye Drop] 1 drop RIGHT EYE HS Losartan Potassium 50 mg PO DAILY Lansoprazole [Prevacid] 30 mg PO PC-SUPPER Acetaminophen-Codeine 300-30mg [Tylenol w/codeine #3] 1 tab PO Q8H PRN PRN Reason: Pain Metolazone [Zaroxolyn] 5 mg PO MO Apixaban [Eliquis] 2.5 mg PO BID Discharge Medication List Furosemide [Lasix] 40 mg PO DAILY 06/10/16 [History] Metoprolol Succinate (ER) [Toprol XL] 25 mg PO DAILY 06/10/16 [History] Travoprost (Benzalkonium) [Travoprost 0.004% Eye Drop] 1 drop RIGHT EYE HS 06/10 [History] Acetaminophen-Codeine 300-30mg [Tylenol w/codeine #3] 1 tab PO Q8H PRN 08/27/17 [History] Apixaban [Eliquis] 2.5 mg PO BID 08/27/17 [History] Lansoprazole [Prevacid] 30 mg PO PC-SUPPER 08/27/17 [History] Losartan Potassium 50 mg PO DAILY 08/27/17 [History] Metolazone [Zaroxolyn] 5 mg PO MO 08/27/17 [History] Isosorbide Mononitrate ER [Imdur] 30 mg PO DAILY #30 tab 08/30/17 [Rx] Follow up Appointment(s)/Referral(s): Kenny Trammell MD [STAFF PHYSICIAN] - 10/18/17 3:30 pm (WEDNESDAY) Martin Carr MD [Primary Care Provider] - 09/06/17 10:45 am (THIS APPOINTMENT WAS ALREADY SCHEDULED) Patient Instructions/Handouts: Heart Failure (DC), Atrial Fibrillation (DC) Discharge Disposition: HOME SELF-CARE
[2017-08-31 11:45] VITALS: PULSE 80
--- NOTE | 2017-08-31 15:32 | P.PN ---
Subjective Progress Note Date: 08/31/17 Principal diagnosis: Progressive dyspnea The patient has a history of aortic valve replacement who presents with symptoms progressive dyspnea, cough productive of yellowish sputum. She continues to have the cough needs to be dyspneic although slightly better. She has no peripheral edema, no dizziness or syncope. She has no evidence of tachycardia or bradycardia. She had an echocardiogram done that showed an ejection fraction of 50-55% with severe bioprosthetic aortic regurgitation and moderate mitral regurgitation with moderate pulmonary hypertension. A shunt seen and examined this afternoon, breathing overall stable. She may be able to be discharged home from cardiology's perspective. A follow-up appointment will be made with Dr. Trammell in the office in 2 weeks at which time discussion regarding her aortic valve will be made. Objective - Vital Signs Vital signs: Vital Signs Temp 97.3 F L 08/31/17 07:57 Pulse 80 08/31/17 11:56 Resp 18 08/31/17 07:57 BP 142/53 08/31/17 07:57 Pulse Ox 97 08/31/17 08:23 Intake & Output 08/30/17 08/31/17 08/31/17 18:59 06:59 18:59 Intake Total 600 600 Balance 600 600 Weight 74.8 kg Intake: Oral 600 600 Other: Voiding Method Toilet # Voids 2 1 - Exam Head: Normocephalic. Eyes: Sclerae nonicteric . Neck: Good carotid upstroke, no bruit, . Lungs: Few crackles at the bases. Heart: Irregular rate and rhythm, S1-S2, no S3, systolic ejection murmur and a diastolic murmur at the base. Abdomen: Soft nontender, positive bowel sounds no organomegaly. Extremities: No edema, intact distal pulses. - Labs CBC & Chem 7: 08/27/17 12:54 08/31/17 06:03 Labs: Abnormal Lab Results - Last 24 Hours (Table) 08/31/17 Range/Units 06:03 Carbon Dioxide 34 H (22-30) mmol/L BUN 40 H (7-17) mg/dL Glucose 127 H (74-99) mg/dL Microbiology - Last 24 Hours (Table) 08/27/17 12:54 Blood Culture - Preliminary Blood No Growth after 96 hours Assessment and Plan Plan: Assessment and Plan Plan: Impression: 1 progressive dyspnea with evidence of CHF related to her aortic regurgitation and possible bronchitis. 2. Persistent chronic atrial fibrillation 3. Status post aortic valve replacement. 4. Worsening renal functions. From cardiology's perspective, patient may be able to be discharged home today. We will make her a follow-up appointment with Dr. Trammell in the office in [address] Trammell will then have further discussion with the patient and her family regarding the options of continuing medical therapy versus valve in valve percutaneous replacement. DNP note has been reviewed, I agree with a documented findings and plan of care. Patient was seen and examined.
== END 2017-08-31 15:57 | disposition home or self-care (01) | DRG 292 ==
LOC: EC 12:17 → 6SEL 15:12
PROVIDERS: ADMIT Family Medicine; ATTEND Family Medicine
DX: I11.0 Hypertensive heart disease with heart failure (principal); I48.1 Persistent atrial fibrillation; I27.20 Pulmonary hypertension, unspecified; J44.9 Chronic obstructive pulmonary disease, unspecified; M06.9 Rheumatoid arthritis, unspecified; I50.33 Acute on chronic diastolic (congestive) heart failure; K21.9 Gastro-esophageal reflux disease without esophagitis; I25.10 Atherosclerotic heart disease of native coronary artery without angina pectoris; I48.2 Chronic atrial fibrillation; E87.6 Hypokalemia; E78.5 Hyperlipidemia, unspecified; I08.3 Combined rheumatic disorders of mitral, aortic and tricuspid valves; T50.1X5A Adverse effect of loop [high-ceiling] diuretics, initial encounter; Z80.1 Family history of malignant neoplasm of trachea, bronchus and lung; Z95.2 Presence of prosthetic heart valve; Z95.1 Presence of aortocoronary bypass graft; Z87.891 Personal history of nicotine dependence; Z79.899 Other long term (current) drug therapy; Z79.01 Long term (current) use of anticoagulants; Z87.01 Personal history of pneumonia (recurrent); Z96.652 Presence of left artificial knee joint
CPT/HCPCS: 36415; 71020; 80048; 80053; 80061; 82550; 82553; 83735; 83880; 84484; 85025; 85610; 85730; 87040; 93005; 93306; 94640; 94760; 96374; 96375; 99291

== ENCOUNTER → 2017-09-06 | Outpatient (CLI) | payer MEDICARE, BC ==
[2017-09-06 13:35] LABS: Anion Gap 11 mmol/L; Blood Urea Nitrogen 32 mg/dL (7-17); Calcium 9.9 mg/dL (8.4-10.2); Carbon Dioxide 33 mmol/L (22-30); Chloride 96 mmol/L (98-107); Glucose 135 mg/dL (74-99); Non-African American GFR(MDRD) >60 (>60 ml/min/1.73 sqM); Sodium 140 mmol/L (137-145)
--- NOTE | 2017-09-06 14:05 | XR ---
EXAMINATION TYPE: XR chest 2V DATE OF EXAM: 09/06/2017 COMPARISON: 08/27/2017 HISTORY: 87 year-old female shortness of breath, cough and congestion TECHNIQUE: Frontal and lateral views FINDINGS: Heart is mildly enlarged. Atherosclerotic arch calcifications. Median sternotomy wires are present. T here is a moderate right and small left pleural effusion with adjacent opacities at the lung bases. I mproved appearance to the pulmonary vasculature is compared to prior exam. IMPRESSION: 1. Cardiomegaly with continued moderate right and small left pleural effusions. Adjacent atelectasis and or consolidation. 2. The previous pulmonary vascular congestion appears to have improved.
== END | disposition home or self-care (01) ==
LOC: RADXRMAIN 12:05
PROVIDERS: ATTEND Family Medicine
DX: J90 Pleural effusion, not elsewhere classified (principal); J98.11 Atelectasis; I51.7 Cardiomegaly; I21.29 ST elevation (STEMI) myocardial infarction involving other sites; R09.89 Other specified symptoms and signs involving the circulatory and respiratory systems
CPT/HCPCS: 36415; 71020; 80048